=== PATIENT | female | born 1965 | race American Indian/Alaskan Native ===

== ENCOUNTER 2021-12-07 07:33 | Outpatient (CLI) | payer BC ==
--- NOTE | 2021-12-07 17:46 | Mammography Report ---
DIGITAL SCREENING MAMMOGRAM WITH CAD, 12/07/2021 CLINICAL INFORMATION / INDICATION: Routine screening mammography. SCREENING MAMMOGRAM TECHNIQUE: Digital bilateral 2D mammography was obtained in the craniocaudal and mediolateral obliqu e projections. This examination was interpreted with the benefit of Computer-Aided Detection analysis . COMPARISON: None currently available. FINDINGS: Breast Density: There are scattered areas of fibroglandular density. No dominant mass, suspicious calcifications, or architectural distortion in either breast. IMPRESSION: No mammographic evidence of malignancy. Follow up recommendation: Routine yearly BI-RADS Category 1: NEGATIVE A "normal" or negative report should not discourage follow up or biopsy of a clinically significant f inding. A written summary of these findings will be mailed to the patient. The patient will be entered into a mammography reporting system which will generate a reminder letter for the patient's next appointmen t at the appropriate interval. The [employer] recommends yearly mammograms starting at age 40 and continuing as l mayra as a woman is in good health. Breast MRI is recommended for women with an approximate 20-25% or greater lifetime risk of breast cancer, including women with a strong family history of breast or ova eva cancer or who have been treated for Hodgkin's disease. Signer Name: Du Momin MD Signed: 12/07/2021 5:41 PM Workstation Name: [email or web address]
== END 2021-12-07 07:34 | disposition home or self-care (01) ==
LOC: MAMMO 07:33
PROVIDERS: ATTEND Internal Medicine
DX: Z12.31 Encounter for screening mammogram for malignant neoplasm of breast (principal)
CPT/HCPCS: 77067

== ENCOUNTER 2021-12-20 06:23 | Outpatient (CLI) | payer BC | END 2021-12-20 06:24 | disposition home or self-care (01) | LOC: LAB 06:23 | PROVIDERS: ATTEND Obstetrics & Gynecology | DX: Z01.419 Encounter for gynecological examination (general) (routine) without abnormal findings (principal); Z11.2 Encounter for screening for other bacterial diseases; Z11.3 Encounter for screening for infections with a predominantly sexual mode of transmission; Z11.9 Encounter for screening for infectious and parasitic diseases, unspecified | CPT/HCPCS: 36415 ==